=== PATIENT | female | born 1955 | race Caucasian/White ===

== ENCOUNTER 2016-08-22 09:43 | Emergency (ER) | payer OTHER ==
[~2016-08-22] VITALS: Ht 157.5 cm; Wt 79.4 kg
[2016-08-22 09:50] VITALS: BP 135/79
--- NOTE | 2016-08-22 09:53 | ED ANKLE/FOOT INJURY COMPLAINT ---
History of Present Illness General Chief Complaint: Foot or Ankle Injury Stated Complaint: L ANKLE INJURY Source: patient, friend Exam Limitations: no limitations Vital Signs & Intake/Output Vital Signs & Intake/Output Vital Signs Date Time Temp Pulse Resp B/P B/P Pulse O2 O2 Flow FiO2 Mean Ox Delivery Rate 08/22 0950 98.9 78 18 135/79 100 Room Air Allergies Coded Allergies: Penicillins (RASH 08/22/16) Reconcile Medications Atorvastatin Calcium 10 MG TABLET 1 TAB PO DAILY CHOLESTEROL (Reported) Meloxicam 15 MG TABLET 1 TAB PO DAILY ANTI-INFLAMMATORY (Reported) Metformin HCl 500 MG TABLET 1 TAB PO BID DIABETES (Reported) Oxycodone HCl/Acetaminophen (Percocet 5-325 MG Tablet) 5 MG-325 MG TABLET 1 TAB PO Q6H PRN PAIN Venlafaxine HCl (Venlafaxine HCl ER) 75 MG CAP.ER.24H 1 CAP PO DAILY MENTAL HEALTH (Reported) Triage Note: PT TO ED FOR L ANKLE PAIN AFTER MISSING A STEP WHILE WALKING DOWN STAIRS LAST NIGHT, DID NOT HIT HEAD, NO DIZZINESS P/T FALL. 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 Triage Nurses Notes Reviewed? yes HPI: Patient is a 61-year-old female presents complaining of left ankle pain. Patient was walking down stairs when she missed a step twisting her ankle and falling to the ground. Injury occurred yesterday evening. Patient took meloxicam this morning with no improvement. Pain is severe, worsens with palpation and attempting weight bearing. Chronic neck pain and spasms, no change from her baseline. Denies head injury, neck injury, back pain, numbness. (KASH LEACH) Past History Travel History Traveled to [place] past 21 day No Medical History Any Pertinent Medical History? 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 No (KASH LEACH) Review of Systems Review of Systems Constitutional: Reports: no symptoms. Cardiovascular: Denies: chest pain. GI: Denies: abdominal pain. Musculoskeletal: Reports: see HPI. Skin: Reports: no symptoms. Neurological/Psychological: Denies: headache, numbness. Hematologic/Endocrine: Reports: bruising (left ankle). Immunologic/Allergic: Reports: no symptoms. (KASH LEACH) Physical Exam Physical Exam General Appearance: well developed/nourished, alert, awake Head: atraumatic, normal appearance Eyes: Bilateral: normal appearance, PERRL, EOMI. Ears, Nose, Throat: hearing grossly normal Neck: normal inspection, supple, full range of motion, no midline tenderness, right lateral paraspinal tenderness Cardiovascular/Respiratory: no respiratory distress Back: normal inspection, normal range of motion, no vertebral tenderness Leg/Knee/Thigh Left: tenderness and bruising over the lateral malleolus Ankle Left: tenderness, bruising, swelling over the left lateral malleolus. Joint stable. Normal active dorsiflexion, mildly limited plantar flexion Foot Left: normal inspection, normal range of motion, nontender Neuro/Vascular: normal sensation Diagram Feet Left/Right: 1) tender, ecchymosis, mild swelling (KASH LEACH) Progress Differential Diagnosis: fracture, sprain Plan of Care: Orders Procedure Date/time Status Durable Medical Equipment 08/22 103 Active Diagnostic Imaging: Viewed by Me: Radiology Read. Discussed w/RAD: Radiology Read. Radiology Impression: PATIENT: MICHELLE LEONG PRESENT AGE: 61 PATIENT ACCOUNT NO: [id number] : 53 LOCATION: [facility] ORDERING PHYSICIAN: KASH PARIKH SERVICE DATE: 08/22/16 EXAM TYPE: RAD - XRY-ANKLE 3 OR MORE VIEWS L EXAMINATION: XR ANKLE, LEFT CLINICAL INFORMATION: Status post fall, ankle pain. COMPARISON: None TECHNIQUE: AP, lateral, and mortise views of the left ankle. FINDINGS: There is a minimally displaced oblique fracture involving the distal left fibular shaft with 2 to 3 mm of lateral displacement of the distal fragment. No other fractures are identified. Subtle widening of the ankle mortise is suggested on the frontal view. Orthopedic consultation is recommended. There is moderate plantar and Achilles calcaneal spurring. IMPRESSION: Left distal fibular fracture. DICTATED BY: STAEHLE MD,[place] DATE/TIME DICTATED:08/22/161025 TRIMMER SAWYER: ZAYDA DATE/TIME TRANSCRIBED:08/22/161025 CONFIDENTIAL, DO NOT COPY WITHOUT APPROPRIATE AUTHORIZATION. <Electronically signed in Other Vendor System> SIGNED BY: [place] VO MD 08/22/16 1032 (KASH LEACH) Departure Departure Time of Disposition: 103 Disposition: HOME OR SELF CARE Condition: Stable Clinical Impression Primary Impression: Fracture of distal fibula Qualifiers: Encounter type: initial encounter Fracture type: closed Fracture morphology: unspecified fracture morphology Laterality: left Qualified Code: S82.832A - Other fracture of upper and lower end of left fibula, initial encounter for closed fracture Referrals: NARGIS MEDRANO,RAQUEL MON MD,ABDIRIZAK HERNANDES DO (PCP/Family) Additional Instructions: Rest, elevate, wear splint until you follow-up with the orthopedic doctor. Follow up with [facility](Dr. Mon or Dr. Quintero) within 1 week for further evaluation. Call today for appointment. Use the crutches to ambulate, do not bear weight on your left foot. Continue taking the Meloxicam as previously directed. Percocet as directed for severe pain(may make you drowsy, may make you constipated). Return to the ER if numbness, pain uncontrollable, or worsening of symptoms. Departure Forms: Customer Survey General Discharge Information Prescriptions: Current Visit Scripts Oxycodone HCl/Acetaminophen (Percocet 5-325 MG Tablet) 1 TAB PO Q6H PRN PAIN #15 TAB (KASH LEACH) PA/DATA PROCESSING MECHANIC Co-Sign Statement Statement: ED Attending supervision documentation- [] I saw and evaluated the patient. I have also reviewed all the pertinent lab results and diagnostic results. I agree with the findings and the plan of care as documented in the PA's/DATA PROCESSING MECHANIC's documentation. [X] I have reviewed the ED Record and agree with the PA's/DATA PROCESSING MECHANIC's documentation. [] Additions or exceptions (if any) to the PAs/DATA PROCESSING MECHANIC's note and plan are summarized below: [] (BETINA LAND DO) Procedures Splinting Location: left lower extremity Hand-Made Type: orthoglass Splint: posterior short leg splint Splint Applied By: splint applied by me Pre-Proc Neuro Vasc Exam: normal Post-Proc Neuro Vasc Exam: normal (MONET PARIKH,KASH)
[2016-08-22] MEDS ORDERED: VENLAFAXINE HCL75 M1 PO (10:01)
[2016-08-22] MEDS ORDERED: METFORMIN HCL500 M3 PO (10:01)
[2016-08-22] MEDS ORDERED: MELOXICAM15 M1 PO (10:01)
[2016-08-22] MEDS ORDERED: ATORVASTATIN CA10 M1 PO (10:01)
--- NOTE | 2016-08-22 10:32 | RADIOLOGY REPORT ---
EXAMINATION: XR ANKLE, LEFT CLINICAL INFORMATION: Status post fall, ankle pain. COMPARISON: None TECHNIQUE: AP, lateral, and mortise views of the left ankle. FINDINGS: There is a minimally displaced oblique fracture involving the distal left fibular shaft with 2 to 3 mm of lateral displacement of the distal fragment. No other fractures are identified. Subtle widening of the ankle mortise is suggested on the frontal view. Orthopedic consultation is recommended. There is moderate plantar and Achilles calcaneal spurring. IMPRESSION: Left distal fibular fracture.
[2016-08-22] MEDS ORDERED: PERCOCET 5-3251 EACH PO (10:38)
== END 2016-08-22 11:05 ==
LOC: ERH 09:43
DX: S82.432A Displaced oblique fracture of shaft of left fibula, initial encounter for closed fracture (principal); X50.9XXA Other and unspecified overexertion or strenuous movements or postures, initial encounter; W10.9XXA Fall (on) (from) unspecified stairs and steps, initial encounter; Y93.01 Activity, walking, marching and hiking; Y92.9 Unspecified place or not applicable
CPT/HCPCS: 73610-LT